=== PATIENT | male | born 1995 | race Caucasian/White ===

== ENCOUNTER 2021-04-16 08:02 | Emergency (ER) | payer OTHER ==
[~2021-04-16] VITALS: Ht 167.6 cm; Wt 100.0 kg
[2021-04-16 09:47] VITALS: BP 139/95
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
[2021-04-16] MEDS ORDERED: CYCL5TAB PO (11:26)
== END 2021-04-16 11:33 | disposition home or self-care (01) ==
LOC: ER 08:02
DX: M54.6 Pain in thoracic spine (principal); Z88.1 Allergy status to other antibiotic agents; V49.59XA Passenger injured in collision with other motor vehicles in traffic accident, initial encounter; Y93.89 Activity, other specified; Y92.89 Other specified places as the place of occurrence of the external cause; Y99.8 Other external cause status
CPT/HCPCS: 72072; 72100; 99284